=== PATIENT | male | born 1960 | race Caucasian/White ===

== ENCOUNTER 2025-08-21 08:13 | Emergency (ER) | payer BC ==
[2025-08-21] MEDS ORDERED: Azithromycin 250 MG TAB ONE (08:35)
== END 2025-08-21 08:48 | disposition home or self-care (01) ==
LOC: BURERS 08:13
DX: R05.9 Cough, unspecified (principal); R03.0 Elevated blood-pressure reading, without diagnosis of hypertension; Z59.71 Insufficient health insurance coverage; Z59.00 Homelessness unspecified
CPT/HCPCS: 99283